=== PATIENT | female | born 1960 | race Caucasian/White ===

== ENCOUNTER → 2018-05-24 14:57 | Outpatient (CLI) | payer OTHER, SELFPAY ==
[2018-05-24 17:35] LABS: Absolute Lymphocyte Count 2.26 X10^3/ul (0.83-4.51); Absolute Neutrophil Count 4.2 X10^3/uL (2.0-7.7); Basophil# 0.03 X10^3/uL; Basophil% 0.4 % (0-1); Eosinophil# 0.15 X10^3/uL; Eosinophils% 2.1 % (0-5); Hematocrit 41.6 % (37-47); Hemoglobin 13.6 g/dl (12.0-15.0); Lymphocyte # 2.26 X10^3/ul (4.0); Lymphocyte % 31.6 % (19-41); Mean Corp Hgb Conc 32.7 g/gl (32-36); Mean Corpuscular Hgb 31.1 pg (27.0-32.0); Mean Platelet Vol. 10.6 fl (6.2-12.0); Monocyte# 0.54 X10^3/uL; Monocyte% 7.6 % (0-10); Neutrophil # 4.16 X10^3/uL (2.7-7.7); Neutrophil % 58.2 % (47-70); POSITIVE COUNT NO; POSITIVE DIFFERENTIAL NO; POSITIVE MORPHOLOGY NO; Platelet Count 297 K/mm3 (150-450); RBC Distribution Width CV 13.3 % (11.6-14.6); RBC Distribution Width SD 45.1 fl (35.1-43.9); Red Blood Count 4.38 M/mm3 (4.2-5.4); White Blood Count 7.2 K/mm3 (4.4-11.0)
[2018-05-24 18:11] LABS: Anion Gap 9 (5-15); BUN 17 mg/dL (7-18); BUN/Creat Ratio 20.1 RATIO (10-20); Calcium,Total 9.7 mg/dL (8.5-10.1); Chloride 107 mmol/L (98-107); Creatinine, Serum 0.84 mg/dL (0.55-1.02); EST Glomerular Filtration Rate 73 mL/min (>60); Est Glom Filt Rate - Afr Amer 89 mL/min (>60); Glucose 105 mg/dL (74-106); Potassium 3.8 mmol/L (3.5-5.1); Sodium Level 142 mmol/L (136-145); T4 Free Direct 1.01 ng/dL (0.76-1.46); Thyroid Stim Hormone (TSH) 1.49 uIU/mL (0.358-3.74)
== END ==
PROVIDERS: Family Provider Family Medicine; PCP Family Medicine; Visit Provider Family Medicine
DX: E03.9 Hypothyroidism, unspecified (principal); I48.91 Unspecified atrial fibrillation; E78.5 Hyperlipidemia, unspecified
CPT/HCPCS: 36415; 80048; 84439; 84443; 85025

== ENCOUNTER → 2018-07-12 08:26 | Outpatient (CLI) | payer OTHER, SELFPAY ==
[2018-07-12 12:54] LABS: Thyroid Stim Hormone (TSH) 2.05 uIU/mL (0.358-3.74)
== END ==
PROVIDERS: Family Provider Family Medicine; PCP Family Medicine; Visit Provider Family Medicine
DX: E03.9 Hypothyroidism, unspecified (principal)
CPT/HCPCS: 36415; 84443

== ENCOUNTER → 2018-09-14 15:23 | Outpatient (CLI) | payer SELFPAY ==
--- NOTE | 2018-09-14 15:46 | MRI_ITS ---
STUDY: MRI LUMBAR SPINE WITHOUT CONTRAST REASON FOR EXAM: Female, 58 years old. RADICULOPATHY, LOW BACK PIN INTO LEFT HIP AND DOWN LEG. TECHNIQUE: Standardized fat and water weighted pulse sequences were obtained in the sagittal and axial planes. COMPARISON: None FINDINGS: T12-L1: There is mild disc space narrowing and endplate spondylosis. There is no significant disc herniation, central canal or foraminal stenosis. Normal lumbar lordosis. There is no substantial scoliosis. Normal conus medullaris that terminates at the T12 L1-2: There is mild disc space narrowing and endplate spondylosis. There is no significant disc herniation, central canal or foraminal stenosis. L2-3: There is moderate disc space narrowing and endplates spondylosis. There is a mild disc bulge and facet atrophy without significant central canal or foraminal stenosis. L3-4: There is mild disc space narrowing and endplates spondylosis. There is mild disc bulge and facet hypertrophy without significant central canal or foraminal stenosis. L4-5: There is mild disc space narrowing and endplates spondylosis.. There is moderate facet arthropathy with minimal grade 1 anterolisthesis and disc bulging without significant central canal or foraminal stenosis. L5-S1: There is mild disc space narrowing and endplates spondylosis. There is severe facet arthropathy with grade 1 anterolisthesis and mild disc bulging without significant central canal stenosis. There is mild bilateral foraminal stenosis. Normal visualized sacral ala. Normal visualized paraspinous soft tissue structures. MRI/Spine Lumbar (Routine) IMPRESSION: L4/L5: Degenerative grade 1 anterolisthesis. L5/S1: Degenerative grade 1 anterolisthesis. Electronically Signed: Easton Cano MD at 15:29 EST Tel , Service support ,
--- OUTSIDE RECORDS SUMMARY | 2018-11-16 17:59 | XMS RPT_ITS ---
:1960 Author Organization OH[facility] Care Team Providers Name Role Phone LUCINDA TODD (MEDIA RELATIONS ASSOCIATE) Referring Unavailable LUCINDA TODD (MEDIA RELATIONS ASSOCIATE) Attending Unavailable LUCINDA TODD (MEDIA RELATIONS ASSOCIATE) Referring Unavailable LUCINDA TODD (MEDIA RELATIONS ASSOCIATE) Referring Unavailable Tenzin Nicole Attending Unavailable Tenzin Nicole Referring Unavailable Tenzin Nicole Primary Care Unavailable Tenzin Nicole Attending Unavailable Tenzin Nicole Primary Care Unavailable Tenzin Nicole Attending Unavailable Tenzin Nicole Primary Care Unavailable PROBLEMS PROBLEMS DATE TYPE CONDITION / CODE ATTENDING STATUS SOURCE 07/19/2018 Unknown E03.9 - Tenzin Nicole Active [place] Hypothyroidism, Community unspecified / Hospital E03.9(ICD-10) Repository 10/12/2017 Active Hypothyroidism, NA Active [place] unspecified / Clinic Main E03.9(ICD-10) [place] Repository 10/21/2017 Active Encounter for NA Active [place] screening mammogram Clinic Main for malignant [place] neoplasm of breast / Repository Z12.31(ICD-10) 08/19/2016 Active Atherosclerotic heart NA Active [place] disease of craig [facility] Main coronary artery [place] without angina Repository pectoris / I25.10(ICD-10) 10/06/2007 Active Mixed hyperlipidemia NA Active [place] / E78.2(ICD-10) Clinic Main [place] Repository PROCEDURES PROCEDURES No Procedure Records FoundRESULTS RESULTS SPINE LUMBAR Observed: 09/14/2018 Status: F Source: [place] (ROUTINE) 3:47 PM [facility] REPOSITORY [facility] Imaging Services [address] [place] [address] Spine Lumbar (Routine) MR#: [id number] Acct: [id number] Name: KASIA MCDERMOTT Rep #: [id number] : 1960 F 58 From: Easton Cano PCP: Tenzin Nicole MD Status: REG CLI Study: Spine Lumbar (Routine) Date of Exam: 09/14/18 Exam# [id number] Ordering Dr: Tenzin Nicole MD STUDY: MRI LUMBAR SPINE WITHOUT CONTRAST REASON FOR EXAM: Female, 58 years old. RADICULOPATHY, LOW BACK PIN INTO LEFT HIP AND DOWN LEG. TECHNIQUE: Standardized fat and water weighted pulse sequences were obtained in the sagittal and axial planes. COMPARISON: None FINDINGS: T12-L1: There is mild disc space narrowing and endplate spondylosis. There is no significant disc herniation, central canal or foraminal stenosis. Normal lumbar lordosis. There is no substantial scoliosis. Normal conus medullaris that terminates at the T12 L1-2: There is mild disc space narrowing and endplate spondylosis. There is no significant disc herniation, central canal or foraminal stenosis. L2-3: There is moderate disc space narrowing and endplates spondylosis. There is a mild disc bulge and facet atrophy without significant central canal or foraminal stenosis. L3-4: There is mild disc space narrowing and endplates spondylosis. There is mild disc bulge and facet hypertrophy without significant central canal or foraminal stenosis. L4-5: There is mild disc space narrowing and endplates spondylosis.. There is moderate facet arthropathy with minimal grade 1 anterolisthesis and disc bulging without significant central canal or foraminal stenosis. L5-S1: There is mild disc space narrowing and endplates spondylosis. There is severe facet arthropathy with grade 1 anterolisthesis and mild disc bulging without significant central canal stenosis. There is mild bilateral foraminal stenosis. Normal visualized sacral ala. Normal visualized paraspinous soft tissue structures. MRI/Spine Lumbar (Routine) IMPRESSION: L4/L5: Degenerative grade 1 anterolisthesis. L5/S1: Degenerative grade 1 anterolisthesis. Electronically Signed: Easton Cano MD at 15:29 EST Tel , Service support , CC: Tenzin Nicole MD Crime Lab Analyst: Signed THYROID STIM HORMONE Collected: 07/12/2018 Status: F Source: [place] (TSH) 8:28 AM [facility] REPOSITORY TYPE CODE TESTS RESULT OUT OF RANGE REFERENCE UNITS LAB L501.9520 0.358-3.74 uIU/mL Normal TSH 2.05 Performed By: #### L501.9520 #### [facility] [address] [place], [place], [address] CBC W/DIFF, AUTOMATED Collected: 05/24/2018 Status: F Source: [place] 3:01 PM [facility] REPOSITORY TYPE CODE TESTS RESULT OUT OF RANGE REFERENCE UNITS LAB L100.1000 4.4-11.0 K/mm3 Normal WBC 7.2 LAB L100.1200 4.2-5.4 M/mm3 Normal RBC 4.38 LAB L100.1300 12.0-15.0 g/dl Normal HGB 13.6 LAB L100.1400 37-47 % Normal HCT 41.6 LAB L100.1500 81-99 fL Normal MCV 95.0 LAB L100.1600 27.0-32.0 pg Normal MCH 31.1 LAB L100.1700 32-36 g/gl Normal MCHC 32.7 LAB L100.1810 11.6-14.6 % Normal RDW CV 13.3 LAB L100.1820 35.1-43.9 fl High RDW SD 45.1 LAB L100.1900 150-450 K/mm3 Normal PLT 297 LAB L100.2000 6.2-12.0 fl Normal MPV 10.6 LAB L100.2100 47-70 % Normal NEUT% 58.2 LAB L100.2200 19-41 % Normal LY% 31.6 LAB L100.2300 0-10 % Normal MONO% 7.6 LAB L100.2400 0-5 % Normal EO% 2.1 LAB L100.2500 0-1 % Normal BASO% 0.4 LAB L100.2550 0.0-0.9 % Normal IM GRAN % 0.100 Result Comment: IG% - Immature Granulocytes (promyelocytes, myelocytes and metamyelocytes) > 1% indicates that a LEFT SHIFT is Present. LAB L100.2620 2.0-7.7 X10 3/uL Normal Absolute Neut 4.2 LAB L100.2720 0.83-4.51 X10 3/ul Normal Absolute Lymph 2.26 Performed By: #### L100.0100 #### [facility] [address] [place], [address] BASIC METABOLIC Collected: 05/24/2018 Status: F Source: [place] PROFILE (BMP) 3:01 PM [facility] REPOSITORY TYPE CODE TESTS RESULT OUT OF RANGE REFERENCE UNITS LAB L501.0100 74-106 mg/dL Normal GLU 105 Result Comment: Fasting Glucose result from 100 to 125 mg/dL suggests IMPAIRED HOMEOSTASIS per A.D.A. criteria. Please note revised GLUCOSE reference range effective 2017. LAB L501.1000 7-18 mg/dL Normal BUN 17 LAB L501.1100 0.55-1.02 mg/dL Normal CREAT,SERUM 0.84 Result Comment: The validity of the calculated GFR AND GFRAA in patients over 70 years has not been determined. Clinical correlation is essential. LAB L501.1110 >60 mL/min Normal EST GFR 73 Result Comment: Non- GFR Calc LAB L501.1115 >60 mL/min Normal EST GFR - AA 89 Result Comment: GFR Calc LAB L501.1300 10-20 RATIO High BUN/CRE 20.1 LAB L501.2200 8.5-10.1 mg/dL CA Normal 9.7 LAB L501.5300 136-145 mmol/L NA Normal 142 LAB L501.5600 3.5-5.1 mmol/L K Normal 3.8 LAB L501.5900 98-107 mmol/L CL Normal 107 LAB L501.6100 21.0-32.0 mmol/L Normal CO2 26.0 LAB L501.6200 5-15 Normal GAP 9 Performed By: #### L500.2500, L501.9520, L506.0400 #### [facility] [address] [place], [address] THYROID STIM HORMONE Collected: 05/24/2018 Status: F Source: [place] (TSH) 3:01 PM [facility] REPOSITORY TYPE CODE TESTS RESULT OUT OF RANGE REFERENCE UNITS LAB L501.9520 0.358-3.74 uIU/mL Normal TSH 1.49 Performed By: #### L500.2500, L501.9520, L506.0400 #### [facility] [address] [place], [address] T4 FREE DIRECT Collected: 05/24/2018 Status: F Source: [place] 3:01 PM [facility] REPOSITORY TYPE CODE TESTS RESULT OUT OF RANGE REFERENCE UNITS LAB L506.0400 0.76-1.46 ng/dL Normal T4 FREE 1.01 DIRECT Performed By: #### L500.2500, L501.9520, L506.0400 #### [facility] [address] [place], [address] TSH Collected: 12/15/2017 Status: F Source: [place] 2:51 PM [facility] REPOSITORY TYPE CODE TESTS RESULT OUT OF RANGE REFERENCE UNITS LAB TSH 0.400-5.500 uU/mL TSH 0.636 Performed By: #### TSH #### [facility] [address] [place], [place] [address] [facility] Observed: 10/21/2017 Status: COMPLETED Source: [place] 10:35 AM [facility] REPOSITORY HNO ID: [id number] Author: Mammography Coordinator Service: (none) Author Type: Physician Type: Letter Filed: 10/25/2017 11:31 PM Note Text: October 21, 2017 PID: [id number] Kasia Mcdermott [address] [place] [address] Dear Ms. Mcdermott, We are pleased to inform you that the results of your recent breast imaging exam on 10/21/2017 are normal. Your mammogram demonstrates that you have dense breast tissue, which could hide abnormalities. Dense breast tissue, in and of itself, is a relatively common condition. Therefore, this information is not provided to cause undue concern; rather, it is to raise your awareness and promote discussion with your health care provider regarding the presence of dense breast tissue in addition to other risk factors. Early detection of cancer is very important. We also understand recommendations regarding breast cancer screening are controversial. Please discuss with your primary care provider which strategy is best for you and whether a mammogram is right for you. Your imaging studies and report will be kept on file at [facility] as part of your permanent medical record and are available for your continuing care. Thank you for allowing us to help in meeting your health care needs. Sincerely, Dr. Beckham Interpreting Radiologist [facility] (Normal over 40) PROGRESS Observed: 10/21/2017 Status: COMPLETED Source: [place] 9:51 AM [facility] REPOSITORY HNO ID: [id number] Author: Sydney Wagner Service: (none) Author Type: (none) Type: Progress Notes Filed: 10/21/2017 9:51 AM Note Text: Radiology Service Progress Note PATIENT NAME: Kasia Mcdermott DATE OF SERVICE: October 21, 2017 TIME: 9:51 AM PATIENT IDENTITY VERIFICATION COMPLETED USING TWO (2) METHODS: Patient confirmed name verbally and Date of . PATIENT GENDER DATA: Female. status: : No status: NO. PATIENT RELEVANT IMPLANT DATA REVIEWED: Not Applicable RADIOLOGY DEPARTMENT: [facility] DATA: Not applicable SIGNED BY: Sydney Wagner October 21, 2017 9:51 AM [facility] SCREENING Observed: 10/21/2017 Status: F Source: [place] 9:34 AM [facility] REPOSITORY * * *Final Report* * * DATE OF EXAM: Oct 21 2017 9:34AM [facility] 0581 - [facility] SCREENING / PROCEDURE REASON: Encounter for screening mammogram for malignant neoplasm of breast * * * * Physician Interpretation * * * * RESULT: #[id number] - [facility] SCREENING BILATERAL DIGITAL SCREENING MAMMOGRAM WITH CAD: 10/21/2017 HISTORY: Encounter For Screening Mammogram For Malignant Neoplasm Of Breast\ Screening Mammogram - patient reports NO breast symptoms /priors available for comparison. RESULT: TECHNIQUE: The study was acquired using full field digital technology and interpreted from soft copy. Current study was also evaluated with a Computer Aided Detection (CAD). Comparison is made to exams dated: 09/02/2016 mammogram, 06/26/2015 mammogram, and 03/15/2012 mammogram - [facility]. The tissue of both breasts is heterogeneously dense. This may lower the sensitivity of mammography. No significant masses, calcifications, or other findings are seen in either breast. There has been no significant interval change. IMPRESSION: NEGATIVE There is no mammographic evidence of malignancy. A 1 year screening mammogram is recommended. Audie Beckham M.D. pt/trino:10/21/2017 10:35:03 Director Information Security: Sydney SMITH)(Claritza), [facility] letter sent: Normal over 40 Mammogram BI-RADS: 1 Negative Crime Lab Analyst: Trino Transcribe Date/Time: Oct 21 2017 9:48A Dictated by: AUDIE BECKHAM MD This examination was interpreted and the report reviewed and electronically signed by: AUDIE BECKHAM MD on Oct 21 2017 10:35AM EST [id number] PROGRESS Observed: 10/12/2017 Status: COMPLETED Source: [place] 10:32 AM [facility] REPOSITORY O ID: [id number] Author: Lucinda Smith (Josh) Perez Service: (none) Author Type: Nurse Practitioner Type: Progress Notes Filed: 10/12/2017 12:26 PM Note Text: Chief Complaint Patient presents with: Refill Request: medication f/up HPI Kasia Mcdermott is a 57 year old female who presents here today for Chronic Medical Conditions and refills. Former patient of Dr. Bourgeois, who is no longer practicing at this site. Hypothyroidism. She is not doing well on her current dose of Synthroid. With complaint of fatigue, weight gain, weight loss and cold intolerance. Current dose of Synthroid is 50 mcg. TSH (uU/mL) Date Value 10/08/2017 3.990 10/01/2016 2.370 ) Palpitations: taking Metoprolol daily for palpitations, improved from when she took Verapamil. Denies any side effects and tolerating well. Takes BP at home with readings 115/60's. Hyperlipidemia. Ms. Mcdermott reports doing well on current therapy of simvastatin (Zocor) 5 mg. Denies side effects of muscle weakness or achiness. Her most recent lipid panels are: Cholesterol, Total (mg/dL) Date Value 10/08/2017 209 10/01/2016 259 HDL Cholesterol (mg/dL) Date Value 10/08/2017 55 10/01/2016 48 LDL Cholesterol (mg/dL) Date Value 10/08/2017 125 10/01/2016 177 Triglyceride (mg/dL) Date Value 10/08/2017 144 10/01/2016 171 Past medical history, appointments, medications, allergies reviewed. Previous Medical History PAST MEDICAL HISTORY Diagnosis Date - Abnormal maternal glucose tolerance, antepartum recent sugars normal - Other and unspecified hyperlipidemia - Uterovaginal prolapse, unspecified Previous Surgical History PAST SURGICAL HISTORY Procedure Laterality Date - LIGATE FALLOPIAN TUBE - PAST SURGICAL HISTORY OF UMBILICAL HERNIA REPAIR - REVISE MEDIAN N/CARPAL TUNNEL SURG 1991 Carpal tunnel decomp, bilat - TOTAL ABDOM HYSTERECTOMY 09/2010 Hysterectomy, ANTHONY Family History FAMILY HISTORY Problem Relation Age of Onset - Colon Cancer Maternal Grandfather - Breast Cancer Paternal Aunt - Hypertension Father - Heart Maternal Grandmother was always on meds for heart but never had [place] - Diabetes Maternal Grandmother - Thyroid Mother also fibromyalgia - multiple myeloma [Other] [OTHER] Father Patient Allergies ALLERGIES No Known Allergies Current Medications Current Outpatient Prescriptions on File Prior to Visit: simvastatin (ZOCOR) 10 mg tablet Take 0.5 tablets by mouth daily at bedtime. For cholesterols. levothyroxine (SYNTHROID) 50 mcg tablet Take 1 tablet by mouth once daily. Take on empty stomach. For Thyroid. UBIDECARENONE (CO Q-10 ORAL) Take by mouth. with Nathanael Solis metoprolol succinate ER (TOPROL XL) 25 mg 24 hr tablet Take 1 tablet by mouth once daily. verapamil ER (VERELAN) 120 mg 24 hr capsule Take 1 capsule by mouth once daily. nitroglycerin sublingual 0.4 mg SU[address] SL tablet Place one(1) tablet under tongue as needed for chest pain. If no pain relief call 911. ASPIRIN 81 MG CHEWABLE TAB Take one(1) tablet daily. No current facility-administered medications on file prior to visit. Social History Social History Marital status: Spouse name: Years of education: Number of children: Social History Main Topics Smoking status: Never Smoker Alcohol use: No Drug use: No Sexual activity: Yes Partners with: Male Review of Symptoms REVIEW OF SYSTEMS GENERAL: No weight loss, malaise or fevers, Positive for malaise . HEENT: No changes in hearing or vision, no nose bleeds or other nasal problems, Positive: past 10 days generalized head pressure. NECK: Negative for lumps, goiter, pain and significant neck swelling RESPIRATORY: Negative for cough, hemoptysis, wheezing, COPD, dyspnea or shortness of breath CARDIOVASCULAR: Negative for chest pain, leg swelling, hypertension, CHF or palpitations GI: No nausea, vomiting, or diarrhea and No heartburn or reflux symptoms : No history of dysuria, frequency or incontinence EXAM: BP 120/72 (BP Site: Left Arm, BP Position: Sitting, BP Cuff Size: Regular Adult) Pulse 64 Resp 18 Wt 71 kg (156 lb 9.6 oz) LMP 01/09/2009 BMI 30.33 kg/m2 General Appearance: Well appearing, alert, in no acute distress, well-hydrated, well nourished., Overweight. Skin: Skin color, texture, turgor normal, no suspicious rashes or lesions. Head: Normocephalic, no masses, lesions, tenderness or abnormalities. Eyes: Anicteric sclera. Pupils are equally round and reactive to light. Extraocular movements are intact. . Ears: External ears normal, canals clear. Oropharynx: Lips, mucosa, and tongue normal, teeth and gums normal, oropharynx normal. Neck: Supple, no adenopathy; thyroid symmetric, normal size, no bruits. Lungs: Lungs clear to auscultation. No wheezing, rhonchi, rales. Heart: RRR without murmur, gallop, or rubs. No ectopy. Abdomen: Normal abdominal exam, Abdomen soft, non-tender. Bowel sounds normal. No masses, organomegaly. Neurologic: Gait normal. . Sensation grossly intact.. Health Maintenance List MAMMOGRAM due on 09/02/2017 COLORECTAL CANCER SCREENING,SEE MODIFIER due on 10/29/2019 DIABETES SCREEN due on 10/08/2020 LIPID SCREEN due on 10/08/2022 TETANUS due on 10/12/2027 ONE PNEUMOVAX PRIOR TO AGE 65 Completed INFLUENZA Completed HEPATITIS C SCREENING Completed Data reviewed Component Latest Ref Rng AND Units 10/08/2017 Protein, Total 6.3 - 8.0 g/dL 7.3 Albumin 3.9 - 4.9 g/dL 4.2 Calcium 8.5 - 10.2 mg/dL 9.3 Bilirubin, Total 0.2 - 1.3 mg/dL 0.7 Alkaline Phosphatase 32 - 117 U/L 65 AST 13 - 35 U/L 33 Glucose 74 - 99 mg/dL 90 BUN 7 - 21 mg/dL 15 Creatinine 0.58 - 0.96 mg/dL 0.62 Sodium 136 - 144 mmol/L 142 Potassium 3.7 - 5.1 mmol/L 3.9 Chloride 97 - 105 mmol/L 102 CO2 22 - 30 mmol/L 24 Anion Gap 9 - 18 mmol/L 16 ALT 7 - 38 U/L 29 eGFR- >60 eGFR-All Other Races . >60 Cholesterol, Total <200 mg/dL 209 (H) Triglyceride <150 mg/dL 144 HDL Cholesterol >39 mg/dL 55 LDL Cholesterol <100 mg/dL 125 (H) Non HDL Cholesterol <130 mg/dL 154 (H) Fasting Time hrs 2 VLDL Cholesterol <30 mg/dL 29 TC:HDL Ratio <5.10 3.80 LDL:HDL Ratio <2.54 2.27 TSH 0.400 - 5.500 uU/mL 3.990 ASSESSMENT/PLAN: 1. Hypothyroidism, acquired - ICD9: 244.9, ICD10: E03.9 (primary diagnosis) - Instructed patient on importance of taking on an empty stomach either first thing in the morning or at bedtime. - check TSH in 2 months - Increase Synthroid dose to 0.075 mg - LEVOTHYROXINE 75 MCG TABLET - TSH BLD 2. Atherosclerosis of craig coronary artery of craig heart without angina pectoris - ICD9: 414.01, ICD10: I25.10 - METOPROLOL SUCCINATE ER 25 MG TABLET,EXTENDED RELEASE 24 HR 3. Mixed hyperlipidemia - ICD9: 272.2, ICD10: E78.2 - good control - Increase dose of simvastatin (Zocor) 10 mg - SIMVASTATIN 10 MG TABLET 4. Screening for breast cancer - ICD9: V76.10, ICD10: Z12.31 - [place] SCREENING Lucinda Todd, MSN TECHNICAL STAFF ENGINEER COMP METABOLIC PANEL Collected: 10/08/2017 Status: F Source: [place] 9:13 AM [facility] REPOSITORY TYPE CODE TESTS RESULT OUT OF REFERENCE UNITS RANGE LAB TP 6.3-8.0 g/dL Protein, Total 7.3 LAB ALB 3.9-4.9 g/dL Albumin 4.2 LAB CA 8.5-10.2 mg/dL Calcium, Total 9.3 LAB TBIL 0.2-1.3 mg/dL Bilirubin, Total 0.7 LAB ALKP 32-117 U/L Alkaline Phosphatase 65 LAB AST 13-35 U/L AST 33 LAB GLU 74-99 mg/dL Glucose 90 Result Comment: The [place] Diabetes Association (ADA) provides guidance for cutoff values for fasting glucose and random glucose. The ADA defines fasting as no caloric intake for at least 8 hours. Fas ting plasma glucose results between 100 to 125 mg/dL indicate increased risk for diabetes (prediabetes). Fasting plasma glucose results greater than or equal to 126 mg/dL meet the criteria for diagnosis of diabetes. In the absence of unequivocal hyperglycemia, results should be confirmed by repeat testing. In a patient with classic symptoms of hyperglycemia or hyperglycemic crisis, random plasma glucose results greater than or equal to 200 mg/dL meet the criteria for diagnosis of diabetes. Reference: Standards of Medical Care in Diabetes 2016, [place] Diabetes Association. Diabetes Care. 2016.39(Suppl 1). LAB BUN 7-21 mg/dL BUN 15 LAB CRET 0.58-0.96 mg/dL Creatinine 0.62 LAB NA 136-144 mmol/L Sodium 142 LAB K 3.7-5.1 mmol/L Potassium 3.9 LAB CL 97-105 mmol/L Chloride 102 LAB CO2 22-30 mmol/L CO2 24 LAB AGAP 9-18 mmol/L Anion Gap 16 LAB ALT 7-38 U/L ALT 29 LAB GFRAA eGFR- Amer. >60 LAB GFRNAA . eGFR-All Other Races >60 Result Comment: eGFR (Estimated GFR) Units of measure: mL/min/1.73 meters squared eGFR is derived from the reexpressed MDRD Study equation using the following parameters: serum creatinine, age, gender and race. The creatinine assay has been calibrated to be traceable to IDMS. An eGFR <60 mL/min/1.73m2 for >3 months is consistent with chronic kidney disease. Refer to KDOQI guidelines for clinical interpretation. In patients with unstable renal function, e.g. those with acute kidney injury, the eGFR may not accurately reflect actual GFR. Performed By: #### CMP, LIPB, TSH #### [facility] [address] [place] [id number] LIPID PANEL, BASIC Collected: 10/08/2017 Status: F Source: [place] 9:13 AM [facility] REPOSITORY TYPE CODE TESTS RESULT OUT OF REFERENCE UNITS RANGE LAB CHOL <200 mg/dL Cholesterol High 209 Result Comment: <200 mg/dL, Desirable 200-239 mg/dL, Borderline high >239 mg/dL, High LAB TRIGLY <150 mg/dL Triglyceride 144 Result Comment: <150 mg/dL, Normal 150-199 mg/dL, Borderline high 200-499 mg/dL, High >499 mg/dL, Very high LAB HDL >39 mg/dL HDL-Cholesterol 55 Result Comment: 40-59 mg/dL, Acceptable >59 mg/dL, High: Negative risk factor for coronary heart disease <40 mg/dL, Low: Positive risk factor for coronary heart disease LAB LDL <100 mg/dL LDL-Cholesterol High 125 Result Comment: <100 mg/dL, Optimal 100-129 mg/dL, Near optimal/above optimal 130-159 mg/dL, Borderline high 160-189 mg/dL, High >189 mg/dL, Very high Secondary prevention optimal LDL Cholesterol levels are recommended to be < 70 mg/dL LAB NONHDL <130 mg/dL Non HDL High Cholesterol 154 Result Comment: <130 mg/dL, Optimal 130-159 mg/dL, Near optimal/above optimal 160-189 mg/dL, Borderline high 190-219 mg/dL, High >219 mg/dL, Very high Secondary prevention optimal non HDL Cholesterol levels are recommended to be < 100 mg/dL LAB FT hrs Fasting Time 2 LAB VLDL <30 mg/dL VLDL Cholesterol 29 LAB TCHDL <5.10 TC:HDL Ratio 3.80 LAB LDLHDL <2.54 LDL:HDL Ratio 2.27 Result Comment: Reference: 1. National Cholesterol Education Program ATP III Guideline At-A-Glance Quick Desk Reference: National Heart, Lung, and Blood [place]. National Institutes of Health. 2001: NIH Publication No. 01-3305. 2. An International Atherosclerosis Society position paper: global recommendations for the management of dyslipidemia: executive summary, Atherosclerosis. 2014: 232(2):410-413. Performed By: #### CMP, LIPB, TSH #### [facility] [address] [place] [address] TSH Collected: 10/08/2017 Status: F Source: [place] 9:13 AM [facility] [place] REPOSITORY TYPE CODE TESTS RESULT OUT OF RANGE REFERENCE UNITS LAB TSH 0.400-5.500 uU/mL TSH 3.990 Performed By: #### CMP, LIPB, TSH #### [facility] [address] [place] [id number] ALLERGIES ALLERGIES DATE TYPE / CODE NAME / CODE REACTION SEVERITY SOURCE 01/25/2017 Drug pravastatin/F006 Unknown Unknown [facility] Allergy/[id number](RXNORM) [facility] 247754(SNOM Repository ED CT) Drug NO KNOWN [facility] Class/81969 ALLERGIES [facility] 1003(SNOMED Repository CT) ENCOUNTERS ENCOUNTERS ADMIT/DISCHARGE ACCOUNT ADMITTING ENCOUNTER LOCATION SOURCE NUMBER CLASS 09/14/2018 [id number] [facility] ing:MRI Repository 07/12/2018 [id number] [facility] ing:LAB.FUTUR Repository E 05/24/2018 [id number] [facility] ing:BFHLAB Repository 12/15/2017/02/15/[id number] Repository 10/21/2017/10/22/[id number] Repository 10/12/2017/10/12/[id number] Repository 10/08/2017/10/08/[id number] Repository PAYERS PAYERS ENCOUNTER GUARANTOR PAYER SUBSCRIBER SOURCE 09/14/2018 KASIA PALAFOX Primary Insurance:[facility] KASIA Pateloster [id number] [facility] [facility]DOB[facility] RDAPPLE Number: .[place]ive [id number] Date:2018-09-12 Repository [id number]: () 09/14/2018 [facility]:SELF PAY [facility] Number: Effective Repository Date:2018-09-12 07/12/2018 Priscila Primary Kasia Lynn [id number] Insurance:CONFUCIANISTDALILA McdermottDOB: [facility]ly [facility]y [id number]: Rep[facility] [id number]: 330 [id number] [phone] () Date: [address] [address]EF: 07/12/2018 Secondary NOT GIVENUNK Leah Insurance:SELF PAY [facility] Number: Effective Repository Date:2018-05-26 05/24/2018 [facility] Kasia Lynn [id number] Insurance:CONFUCIANIST BaldemarDOB: [facility] [id number] GROUPPoly Number: Repository [id number]: 330 [id number] [phone] () Date: [address] [address]VT: 05/24/2018 Secondary NOT GIVENUNK Leah Insurance:SELF PAY [facility] Number: Effective Repository Date:2018-05-24
== END ==
PROVIDERS: Family Provider Family Medicine; PCP Family Medicine; Referring Provider Family Medicine; Visit Provider Family Medicine
DX: M54.16 Radiculopathy, lumbar region (principal)
CPT/HCPCS: 72148

== ENCOUNTER → 2018-10-26 09:26 | Outpatient (CLI) | payer OTHER, SELFPAY ==
[2018-10-26 12:20] LABS: Absolute Lymphocyte Count 1.91 X10^3/ul (0.83-4.51); Absolute Neutrophil Count 3.4 X10^3/uL (2.0-7.7); Basophil# 0.04 X10^3/uL; Basophil% 0.7 % (0-1); Eosinophil# 0.25 X10^3/uL; Eosinophils% 4.2 % (0-5); Hematocrit 42.1 % (37-47); Hemoglobin 13.3 g/dl (12.0-15.0); Lymphocyte # 1.91 X10^3/ul (4.0); Lymphocyte % 31.8 % (19-41); Mean Corp Hgb Conc 31.6 g/gl (32-36); Mean Corpuscular Hgb 30.4 pg (27.0-32.0); Mean Corpuscular Volume 96.3 fL (81-99); Mean Platelet Vol. 10.7 fl (6.2-12.0); Monocyte# 0.43 X10^3/uL; Monocyte% 7.2 % (0-10); Neutrophil # 3.35 X10^3/uL (2.7-7.7); Neutrophil % 55.8 % (47-70); Platelet Count 308 K/mm3 (150-450); RBC Distribution Width CV 13.7 % (11.6-14.6); RBC Distribution Width SD 48.1 fl (35.1-43.9); Red Blood Count 4.37 M/mm3 (4.2-5.4)
[2018-10-26 12:29] LABS: POSITIVE COUNT NO; POSITIVE DIFFERENTIAL NO; POSITIVE MORPHOLOGY NO
[2018-10-26 12:51] LABS: ALB/GLOB Ratio 0.9 RATIO (0.9-2.4); AST(SGOT) 30 U/L (15-37); Alanine Aminotransfer ALT/SGPT 52 U/L (13-56); Albumin, Serum 3.7 g/dL (3.2-5.0); Alkaline Phosphatase 78 U/L (45-117); Anion Gap 9 (5-15); BUN 17 mg/dL (7-18); BUN/Creat Ratio 25.6 RATIO (10-20); Calcium,Total 9.3 mg/dL (8.5-10.1); Chloride 108 mmol/L (98-107); Creatinine, Serum 0.66 mg/dL (0.55-1.02); EST Glomerular Filtration Rate 97 mL/min (>60); Est Glom Filt Rate - Afr Amer 117 mL/min (>60); Globulin 3.9 g/dL (2.2-4.2); Glucose 132 mg/dL (74-106); Magnesium 2.2 mg/dL (1.6-2.6); Potassium 3.6 mmol/L (3.5-5.1); Protein, Total 7.6 g/dL (6.4-8.2); Sodium Level 143 mmol/L (136-145); T4 Free Direct 1.41 ng/dL (0.76-1.46); Thyroid Stim Hormone (TSH) 0.06 uIU/mL (0.358-3.74)
== END ==
PROVIDERS: Family Provider Family Medicine; PCP Family Medicine; Visit Provider Family Medicine
DX: E03.9 Hypothyroidism, unspecified (principal); I48.91 Unspecified atrial fibrillation; E78.5 Hyperlipidemia, unspecified
CPT/HCPCS: 36415; 80053; 83735; 84439; 84443; 85025

== ENCOUNTER → 2019-03-07 | Outpatient (CLI) | payer OTHER, SELFPAY ==
[2019-03-07 12:46] LABS: T4 Free Direct 1.11 ng/dL (0.76-1.46)
== END | disposition home or self-care (01) ==
PROVIDERS: Family Provider Family Medicine; PCP Family Medicine; Visit Provider Family Medicine
DX: E03.9 Hypothyroidism, unspecified (principal)
CPT/HCPCS: 36415; 84439; 84443

== ENCOUNTER → 2019-03-28 | Outpatient (CLI) | payer SELFPAY ==
--- NOTE | 2019-03-28 10:12 | BI_ITS ---
MAMMOGRAPHY - BILATERAL SCREENING REASON FOR EXAM: Female, 59 years old. Routine annual screening examination. PERTINENT HISTORY: Aunt with breast cancer. TECHNIQUE: Digital bilateral breast jaciel (3D mammographic acquisition) in the CC and MLO projections. 2-D mediolateral oblique (MLO) and craniocaudad (CC) views of both breasts were obtained. CAD: Full Field Digital Mammography with Computer Added Detection was performed. COMPARISON: No comparison mammograms available at this time. If any prior films become available, an addendum to this report can be generated. FINDINGS: Breast Composition: The breasts are heterogeneously dense, which may obscure small masses. There are no dominant masses or suspicious calcifications. Benign appearing bilateral axillary lymph nodes. No other significant abnormalities are identified. BI/SCREEN MAMM (CAD) W/JACIEL BILAT IMPRESSION: Negative screening mammogram. Yearly followup mammogram recommended. (A) ASSESSMENT CATEGORY: BIRADS Category 2: Benign. A letter regarding these results will be sent to the patient by the facility within 30 days. Approximately 10% of breast cancers are not detected by mammography. A normal mammogram should not delay biopsy of a clinically suspicious abnormality. [id number] Electronically Signed: Eben Ayers, at 9:01 EDT , Service support ,
== END | disposition home or self-care (01) ==
LOC: OPBI 10:10
PROVIDERS: Family Provider Family Medicine; PCP Family Medicine; Referring Provider Family Medicine; Visit Provider Family Medicine
DX: Z12.31 Encounter for screening mammogram for malignant neoplasm of breast (principal)
CPT/HCPCS: 77063; 77067

== ENCOUNTER → 2019-09-12 09:53 | Outpatient (CLI) | payer OTHER, SELFPAY ==
[2019-09-12 12:13] LABS: Absolute Lymphocyte Count 2.14 X10^3/uL (0.83-4.51); Absolute Neutrophil Count 4.2 X10^3/uL (2.0-7.7); Basophil# 0.05 X10^3/uL; Basophil% 0.7 % (0-1); Eosinophil# 0.16 X10^3/uL; Eosinophils% 2.3 % (0-5); Hematocrit 42.5 % (37-47); Hemoglobin 13.7 g/dL (12.0-15.0); Lymphocyte # 2.14 X10^3/ul (4.0); Lymphocyte % 30.5 % (19-41); Mean Corp Hgb Conc 32.2 g/dL (32-36); Mean Corpuscular Hgb 30.5 pg (27.0-32.0); Mean Corpuscular Volume 94.7 fL (81-99); Mean Platelet Vol. 10.1 fl (6.2-12.0); Monocyte# 0.49 X10^3/uL; NRBC Flagged by Analyzer 0 % (0-5); Neutrophil # 4.15 X10^3/uL (2.7-7.7); Neutrophil % 59.2 % (47-70); Platelet Count 344 K/mm3 (150-450); RBC Distribution Width SD 44.7 fl (35.1-43.9); Red Blood Count 4.49 M/mm3 (4.2-5.4)
[2019-09-12 12:35] LABS: Anion Gap 4 (5-15); BUN 16 mg/dL (7-18); BUN/Creat Ratio 23.9 RATIO (10-20); Calcium,Total 9.7 mg/dL (8.5-10.1); Chloride 107 mmol/L (98-107); Creatinine, Serum 0.67 mg/dL (0.55-1.02); EST Glomerular Filtration Rate 95 mL/min (>60); Est Glom Filt Rate - Afr Amer 115 mL/min (>60); Glucose 114 mg/dL (74-106); Magnesium 2.4 mg/dL (1.6-2.6); Potassium 3.8 mmol/L (3.5-5.1); Sodium Level 141 mmol/L (136-145); T4 Free Direct 1.26 ng/dL (0.76-1.46); Thyroid Stim Hormone (TSH) 1.59 uIU/mL (0.358-3.74)
== END ==
PROVIDERS: PCP Family Medicine; Visit Provider Family Medicine
DX: E03.9 Hypothyroidism, unspecified (principal); I48.91 Unspecified atrial fibrillation; R53.83 Other fatigue
CPT/HCPCS: 36415; 80048; 83735; 84439; 84443; 85025

== ENCOUNTER → 2020-06-24 11:33 | Outpatient (CLI) | payer OTHER, SELFPAY ==
[2020-05-22 13:15] VITALS: BMI 29.5
[2020-06-24 15:55] LABS: Thyroid Stim Hormone (TSH) 0.63 uIU/mL (0.358-3.74)
== END ==
PROVIDERS: PCP Family Medicine; Visit Provider Family Medicine
DX: E03.9 Hypothyroidism, unspecified (principal)
CPT/HCPCS: 36415; 84443

== ENCOUNTER → 2020-10-02 10:41 | Outpatient (CLI) | payer OTHER, SELFPAY ==
[2020-05-22 13:15] VITALS: BMI 29.5
[2020-10-02 12:43] LABS: Absolute Lymphocyte Count 2.27 X10^3/uL (0.83-4.51); Absolute Neutrophil Count 3.7 X10^3/uL (2.0-7.7); Basophil# 0.04 X10^3/uL; Basophil% 0.6 % (0-1); Eosinophil# 0.11 X10^3/uL; Eosinophils% 1.7 % (0-5); Hematocrit 43.3 % (37-47); Lymphocyte # 2.27 X10^3/ul (4.0); Lymphocyte % 34.6 % (19-41); Mean Corp Hgb Conc 32.3 g/dL (32-36); Mean Corpuscular Hgb 30.5 pg (27.0-32.0); Mean Corpuscular Volume 94.3 fL (81-99); Mean Platelet Vol. 10.5 fl (6.2-12.0); Monocyte# 0.41 X10^3/uL; Monocyte% 6.2 % (0-10); NRBC Flagged by Analyzer 0 % (0-5); Neutrophil # 3.73 X10^3/uL (2.7-7.7); Neutrophil % 56.7 % (47-70); Platelet Count 310 K/mm3 (150-450); RBC Distribution Width CV 13.3 % (11.6-14.6); RBC Distribution Width SD 45.9 fl (35.1-43.9); Red Blood Count 4.59 M/mm3 (4.2-5.4); White Blood Count 6.6 K/mm3 (4.4-11.0)
[2020-10-02 12:46] LABS: Erythrocyte Sedimentation Rate 10 mm/hr (0-30)
[2020-10-02 12:54] LABS: Hemoglobin A1c 5.9 % (3.8-5.6)
[2020-10-02 13:14] LABS: CPK Total, Creatine Kinase 111 U/L (26-192); CRP < 2.90 mg/L (0.0-3.0); Cholesterol 216 mg/dL (200); High Density Lipoprotein 63 mg/dL; Magnesium 2.2 mg/dL (1.6-2.6); Rheumatoid Factor < 10.0 IU/mL (<15); T4 Free Direct 1.28 ng/dL (0.76-1.46); Thyroid Stim Hormone (TSH) 2.17 uIU/mL (0.358-3.74); Triglycerides 130 mg/dL; Very Low Density Lipoprotein 26 mg/dL (5-40)
[2020-10-04 12:33] LABS: CCP IgG Antibodies 6 units (0-19)
== END ==
PROVIDERS: PCP Family Medicine; Visit Provider Family Medicine
DX: E78.5 Hyperlipidemia, unspecified (principal); I48.91 Unspecified atrial fibrillation; R73.01 Impaired fasting glucose; M06.4 Inflammatory polyarthropathy; M79.10 Myalgia, unspecified site
CPT/HCPCS: 36415; 80061; 82550; 83036; 83735; 84439; 84443; 85025; 85652; 86140; 86200; 86431

== ENCOUNTER → 2020-11-26 08:13 | Outpatient (CLI) | payer SELFPAY, OTHER ==
[2020-05-22 13:15] VITALS: BMI 29.5
--- NOTE | 2020-11-26 08:16 | BI_ITS ---
MAMMOGRAPHY - BILATERAL SCREENING 3-D TOMOSYNTHESIS REASON FOR EXAM: Female, 60 years old. SCREENING PERTINENT HISTORY: Aunt with breast cancer.. TECHNIQUE: 2-D mammograms and 3-D Tomosynthesis of the breast (s) were performed. CAD was performed. COMPARISON: 03/28/2019 FINDINGS: The breast composition is heterogeneously dense that can obscure small breast masses. Scattered benign calcifications are seen. No dense spiculated masses or suspicious microcalcifications are identified. No architectural distortion is identified. There is no skin thickening or retraction. There has been no significant change since the prior study. BI/SCRN MAMM (CAD)W/JACIEL BILAT IMPRESSION: No mammographic signs of malignancy. Routine yearly mammograms recommended. ASSESSMENT CATEGORY: BIRADS Category 1: Negative. A letter regarding these results will be sent to the patient by the facility within 30 days. FOLLOW UP RECOMMENDATION: Yearly follow up mammogram recommended. (A) Approximately 10% of breast cancers are not detected by mammography. A normal mammogram should not delay biopsy of a clinically suspicious abnormality. Electronically Signed: Mahin Llanos MD at 10:31 EDT , Service support ,
== END ==
PROVIDERS: PCP Family Medicine; Referring Provider Family Medicine; Visit Provider Family Medicine
DX: Z12.31 Encounter for screening mammogram for malignant neoplasm of breast (principal)
CPT/HCPCS: 77063; 77067

== ENCOUNTER → 2021-01-14 13:26 | Outpatient (CLI) | payer SELFPAY, OTHER ==
[2020-05-22 13:15] VITALS: BMI 29.5
--- NOTE | 2021-01-14 13:29 | RAD_ITS ---
STUDY: X-RAY - RIGHT KNEE REASON FOR EXAM: Female, 60 years old. KNEE PAIN TECHNIQUE: 4 view(s) of the knee. COMPARISON: None. FINDINGS: Normal visualized distal femur. Normal visualized proximal tibia and fibula. Normal proximal tibiofibular articulation. There is moderate degenerative arthrosis of the medial femorotibial compartment with moderate joint space narrowing. Normal lateral femorotibial compartment. Normal patellofemoral articulation. Small joint effusion. RAD/Knee 4 or More Views IMPRESSION: Degenerative arthrosis. Small joint effusion. Electronically Signed: Eben Ayers MD at 14:36 EDT , Service support ,
--- NOTE | 2021-01-14 13:29 | RAD_ITS ---
STUDY: X-RAY - LEFT KNEE REASON FOR EXAM: Female, 60 years old. KNEE PAIN TECHNIQUE: 4 view(s) of the knee. COMPARISON: None. FINDINGS: Normal visualized distal femur. Normal visualized proximal tibia and fibula. Normal proximal tibiofibular articulation. There is severe degenerative arthrosis of the medial femorotibial compartment with severe joint space narrowing. Normal lateral femorotibial compartment. Normal patellofemoral articulation. Small joint effusion. RAD/Knee 4 or More Views IMPRESSION: Degenerative arthrosis. Small joint effusion. Electronically Signed: Eben Ayers MD at 14:37 EDT , Service support ,
== END ==
PROVIDERS: PCP Family Medicine; Referring Provider Family Medicine; Visit Provider Family Medicine
DX: M25.562 Pain in left knee (principal); M25.561 Pain in right knee
CPT/HCPCS: 73564

== ENCOUNTER → 2022-09-10 | Outpatient (CLI) | payer OTHER, SELFPAY ==
[2022-09-10 12:12] LABS: Absolute Lymphocyte Count 2.58 X10^3/uL (0.83-4.51); Absolute Neutrophil Count 3.7 X10^3/uL (2.0-7.7); Basophil# 0.06 X10^3/uL; Basophil% 0.8 % (0-1); Eosinophil# 0.23 X10^3/uL; Eosinophils% 3.2 % (0-5); Hematocrit 43.5 % (37-47); Hemoglobin 13.7 g/dL (12.0-15.0); Lymphocyte # 2.58 X10^3/ul (0.83-4.51); Lymphocyte % 36.2 % (19-41); Mean Corp Hgb Conc 31.5 g/dL (32-36); Mean Corpuscular Hgb 30.6 pg (27.0-32.0); Mean Corpuscular Volume 97.1 fL (81-99); Mean Platelet Vol. 10.7 fl (6.2-12.0); Monocyte# 0.53 X10^3/uL; Monocyte% 7.4 % (0-10); NRBC Flagged by Analyzer 0.3 % (0-5); Neutrophil # 3.72 X10^3/uL (2.7-7.7); Neutrophil % 52.3 % (47-70); Platelet Count 320 K/mm3 (150-450); Red Blood Count 4.48 M/mm3 (4.2-5.4); White Blood Count 7.1 K/mm3 (4.4-11.0)
[2022-09-10 12:31] LABS: AST(SGOT) 20 U/L (15-37); Alanine Aminotransfer ALT/SGPT 30 U/L (13-56); Albumin, Serum 3.9 g/dL (3.2-5.0); Alkaline Phosphatase 62 U/L (45-117); Anion Gap 6 (5-15); BUN 16 mg/dL (7-18); BUN/Creat Ratio 20.4 RATIO (10-20); Calcium,Total 9.6 mg/dL (8.5-10.1); Chloride 107 mmol/L (98-107); Cholesterol 217 mg/dL (200); Creatinine, Serum 0.78 mg/dL (0.55-1.02); EST Glomerular Filtration Rate 79 mL/min (>60); Est Glom Filt Rate - Afr Amer 95 mL/min (>60); Glucose 106 mg/dL (74-106); Hemoglobin A1c 6.1 % (3.8-5.6); High Density Lipoprotein 58 mg/dL; Protein, Total 7.9 g/dL (6.4-8.2); Sodium Level 142 mmol/L (136-145); T4 Free Direct 1.13 ng/dL (0.76-1.46); Thyroid Stim Hormone (TSH) 2.17 uIU/mL (0.358-3.74); Triglycerides 151 mg/dL; Very Low Density Lipoprotein 30 mg/dL (5-40)
== END | disposition home or self-care (01) ==
LOC: BFHLAB 10:12
PROVIDERS: PCP Family Medicine; Visit Provider Family Medicine
DX: E03.9 Hypothyroidism, unspecified (principal); I48.91 Unspecified atrial fibrillation; R73.03 Prediabetes; R78.5 Finding of other psychotropic drug in blood
CPT/HCPCS: 36415; 80053; 80061; 83036; 84439; 84443; 85025

== ENCOUNTER → 2022-10-07 | Outpatient (CLI) | payer SELFPAY, OTHER ==
--- NOTE | 2022-10-07 09:17 | BI_ITS ---
MAMMOGRAPHY - BILATERAL SCREENING REASON FOR EXAM: Female, 62 years old. Routine annual screening examination. PERTINENT HISTORY: Sister with breast cancer. Aunt with breast cancer. TECHNIQUE: Digital bilateral breast jaciel (3D mammographic acquisition) in the CC and MLO projections. 2-D mediolateral oblique (MLO) and craniocaudad (CC) views of both breasts were obtained. CAD: Full Field Digital Mammography with Computer Added Detection was performed. COMPARISON: Comparison is made with prior study dated 11/26/2020 and 03/28/2019. FINDINGS: Breast Composition: The breasts are heterogeneously dense, which may obscure small masses. There are no dominant masses or suspicious calcifications. Stable small benign-appearing bilateral axillary lymph nodes. No other significant abnormalities are identified. There has been no significant change since the prior study. BI/SCRN MAMM (CAD)W/JACIEL BILAT IMPRESSION: Stable bilateral screening mammogram. Yearly follow-up mammogram recommended. (A) ASSESSMENT CATEGORY: BIRADS Category 2: Benign. A letter regarding these results will be sent to the patient by the facility within 30 days. Approximately 10% of breast cancers are not detected by mammography. A normal mammogram should not delay biopsy of a clinically suspicious abnormality. [id number] Electronically Signed: Eben Ayers MD at 12:49 EST ,
== END | disposition home or self-care (01) ==
LOC: OPBI 09:15
PROVIDERS: PCP Family Medicine; Referring Provider Family Medicine; Visit Provider Family Medicine
DX: Z12.31 Encounter for screening mammogram for malignant neoplasm of breast (principal)
CPT/HCPCS: 77063; 77067

== ENCOUNTER → 2023-08-31 | Outpatient (CLI) | payer OTHER, SELFPAY ==
[2023-08-31 12:08] LABS: Absolute Lymphocyte Count 2.51 X10^3/uL (0.83-4.51); Absolute Neutrophil Count 3.6 X10^3/uL (2.0-7.7); Basophil# 0.05 X10^3/uL; Basophil% 0.7 % (0-1); Eosinophil# 0.21 X10^3/uL; Hematocrit 42.5 % (37-47); Hemoglobin 13.5 g/dL (12.0-15.0); Lymphocyte # 2.51 X10^3/ul (0.83-4.51); Lymphocyte % 36.4 % (19-41); Mean Corp Hgb Conc 31.8 g/dL (32-36); Mean Corpuscular Hgb 30.8 pg (27.0-32.0); Mean Corpuscular Volume 96.8 fL (81-99); Mean Platelet Vol. 10.3 fl (6.2-12.0); Monocyte# 0.52 X10^3/uL; Monocyte% 7.5 % (0-10); NRBC Flagged by Analyzer 0 % (0-5); Neutrophil # 3.58 X10^3/uL (2.7-7.7); Neutrophil % 52.1 % (47-70); Platelet Count 306 K/mm3 (150-450); RBC Distribution Width CV 13.1 % (11.6-14.6); RBC Distribution Width SD 47.1 fl (35.1-43.9); Red Blood Count 4.39 M/mm3 (4.2-5.4); White Blood Count 6.9 K/mm3 (4.4-11.0)
[2023-08-31 12:42] LABS: Hemoglobin A1c 5.7 % (3.8-5.6)
[2023-08-31 12:45] LABS: AST(SGOT) 27 U/L (15-37); Alanine Aminotransfer ALT/SGPT 38 U/L (13-56); Albumin, Serum 3.9 g/dL (3.2-5.0); Alkaline Phosphatase 65 U/L (45-117); Anion Gap 6 (5-15); BUN 16 mg/dL (7-18); Calcium,Total 10.2 mg/dL (8.5-10.1); Chloride 109 mmol/L (98-107); Cholesterol 222 mg/dL (200); Creatinine, Serum 0.73 mg/dL (0.55-1.02); EST Glomerular Filtration Rate 85 mL/min (>60); Est Glom Filt Rate - Afr Amer 103 mL/min (>60); Globulin 3.9 g/dL (2.2-4.2); Glucose 118 mg/dL (74-106); High Density Lipoprotein 52 mg/dL; Potassium 4.3 mmol/L (3.5-5.1); Protein, Total 7.8 g/dL (6.4-8.2); Sodium Level 142 mmol/L (136-145); T4 Free Direct 1.17 ng/dL (0.76-1.46); Thyroid Stim Hormone (TSH) 1.06 uIU/mL (0.358-3.74); Triglycerides 173 mg/dL; Very Low Density Lipoprotein 35 mg/dL (5-40)
== END | disposition home or self-care (01) ==
LOC: BFHLAB 10:37
PROVIDERS: PCP Family Medicine; Visit Provider Family Medicine
DX: E03.9 Hypothyroidism, unspecified (principal); I48.91 Unspecified atrial fibrillation; E78.5 Hyperlipidemia, unspecified; R73.03 Prediabetes
CPT/HCPCS: 36415; 80053; 80061; 83036; 84439; 84443; 85025

== ENCOUNTER → 2023-09-09 | Outpatient (CLI) | payer OTHER, SELFPAY ==
[2023-09-09 12:59] LABS: PTHIN 54.9 pg/mL (18.4-80.1)
[2023-09-09 13:00] LABS: Vitamin D,25 Hydroxy 26.8 ng/mL
[2023-09-09 13:16] LABS: Ionized Calcium 5.09 mg/dL (4.36-5.20)
[2023-09-13 10:07] LABS: Immunoglobulin A 181 mg/dL (87-352); Immunoglobulin G 858 mg/dL (586-1602); Immunoglobulin M 230 mg/dL (26-217); PROEL- A/G Ratio 1.3 (0.7-1.7); PROEL- Albumin 3.9 g/dL (2.9-4.4); PROEL- Alpha-1 Globulin 0.2 g/dL (0.0-0.4); PROEL- Alpha-2 Globulin 0.8 g/dL (0.4-1.0); PROEL- Beta Globulin 1.2 g/dL (0.7-1.3); PROEL- Globulin, Total 3.1 g/dL (2.2-3.9); PROEL-M-Spike Not Observed g/dL (Not Observed); PROELU- Albumin, Urine 33.6 % (.); PROELU- Alpha-1-Globulin,Ur 8.8 % (.); PROELU- Alpha-2-Globulin,Ur 17.7 % (.); PROELU- Beta Globulin, Ur 23.5 % (.); PROELU- Gamma Globulin, Ur 16.4 % (.); Total Protein, Ur 11.6 mg/dL (Not Estab.)
== END | disposition home or self-care (01) ==
LOC: BFHLAB 10:11
PROVIDERS: PCP Family Medicine; Visit Provider Family Medicine
DX: M89.9 Disorder of bone, unspecified (principal); R79.89 Other specified abnormal findings of blood chemistry; R53.83 Other fatigue
CPT/HCPCS: 36415; 82306; 82330; 82784; 83970; 84165; 84166; 86334

== ENCOUNTER → 2023-09-15 | Outpatient (CLI) | payer SELFPAY, OTHER ==
--- NOTE | 2023-09-15 15:19 | US_ITS ---
STUDY: THYROID ULTRASOUND REASON FOR EXAM: Female, 63 years old. NODULES TECHNIQUE: Ultrasound evaluation of the thyroid was performed with real-time and static cotton-scale imaging. COMPARISON: None. FINDINGS: RIGHT LOBE: The right lobe of the thyroid gland measures 4.8 x 1.3 x 1.4 cm. There is a homogeneous echotexture. There are no demonstrated solid, cystic or complex lesions. LEFT LOBE: The left lobe of the thyroid gland measures 5 x 1.4 x 1.2 cm. There is a homogeneous echotexture. Isoechoic nodule left lobe inferiorly measures 1.0 x 0.9 x 1.0 cm. There is perinodule vascularity. It appears well-circumscribed and homogeneous without calcifications. TR2. A second nodule is noted superiorly wider than tall measuring 0.7 x 0.5 x 0.3 cm. This appears solid/cystic. There is minimal perinodular vascularity. It appears hypoechoic. TR3. ISTHMUS: The isthmus measures 0.9 cm . The regional lymph nodes are normal. US/Thyroid IMPRESSION: 2 nodules left thyroid as above. Follow-up nuclear medicine may be helpful for further characterization. Electronically Signed: Giles Valles MD at 16:29 EST ,
--- OUTSIDE RECORDS SUMMARY | 2023-09-15 16:58 | XMS RPT_ITS | CCD ---
Author Name Unknown Address [address] [place] [address] Organization [facility] Care Team Providers Care Vice President Corporate Communications Name Role Phone [place] IQBAL, Jodie De Guzman Unavailable [phone] [place] IQBAL, Jodie De Guzman Unavailable [phone] Belkys PEREZ-Murray Bocanegra Unavailable Unavailable Belkys PEREZ-Murray Bocanegra Unavailable Unavailable WIL HERNANDEZ Attending Unavailable WIL HERNANDEZ Primary Care Unavailable WIL HERNANDEZ Admitting Unavailable SHIRLEY RAMÍREZ MD Consulting Unavailable PROVIDER, UNKNOWN Consulting Unavailable Allergies Allergy Classification Reported Allergen(s) Allergy Type Date of Onset Reaction(s) Facility (5 sources) pravastatin drug allergy 10-15-2016 RUQ pain [facility] Work Phone: Medications Completed/Discontinued Medications Medication Drug Class(es) Dates Sig (Normalized) Sig (Original) aspirin 81 mg delayed release oral tablet (5 sources) Nonsteroidal Anti-inflammatory Drug Start: 10-15-2016 take 1 tablet by mouth once daily ASPIRIN EC 81 MG TBEC One tablet by mouth daily ASPIRIN [id number] Jodie Toledo RN clopidogrel 75 mg oral tablet (6 sources) P2Y12 Platelet Inhibitor Start: 01-11-2017 End: 01-26-2017 take 1 tablet by mouth once daily PLAVIX 75 MG TABS One tablet by mouth daily CLOPIDOGREL BISULFATE [id number] Murray Rizvi [employer] COENZYME Q10 (5 sources) Start: 10-22-2016 take 1 tablet by mouth once daily CO Q-10 100 MG CAPS One tablet by mouth daily COENZYME Q10 [id number] Dylon Puentes MD Problems Active Problems Problem Classification Problem Date Documented Da te Episodic/Chronic Coronary atherosclerosis and other heart disease (15 sources) Angina pectoris; Translations: [Atherosclerotic heart disease of hoopa coronary artery without angina pectoris] Onset: 10-15-2016 10-22-2016 Chronic Disorders of lipid metabolism (5 sources) Hyperlipidemia; Translations: [Hyperlipidemia, unspecified] Onset: 10-15-2016 10-15-2016 Chronic Other nutritional; endocrine; and metabolic disorders (5 sources) Body mass index (BMI) 30.0-30.9, adult; Translations: [Body mass index (BMI) 30.0-30.9, adult] Onset: 10-22-2016 10-22-2016 Chronic Past or Other Problems Problem Classification Problem Date Documented Da te Episodic/Chronic Cardiac dysrhythmias (5 sources) Palpitations; Translations: [Palpitations] Onset: 10-15-2016 10-15-2016 Episodic Malaise and fatigue (5 sources) Fatigue; Translations: [Other fatigue] Onset: 01-11-2017 01-11-2017 Episodic Other lower respiratory disease (5 sources) Dyspnea on exertion; Translations: [Other forms of dyspnea] Onset: 01-11-2017 01-11-2017 Episodic Results Test Name Value Interpretation Reference Range Facil ity Vital Signs Date Time Vital Sign Value Performing Clinician Shauna lundy 01-22-2017 10:18-0400 Heart rate 74 /min Murray Rizvi [employer] [facility] Work Phone: 01-11-2017 08:48-0400 BMI (Body Mass Index) 30.07 kg/m2 Murray Rizvi [employer] [facility] Work Phone: 01-11-2017 08:48-0400 Body weight 69.85 kg Murray Rizvi [employer] [facility] Work Phone: 01-11-2017 08:48-0400 BP Diastolic 74 mm[Hg] Murray Rizvi [employer] [facility] Work Phone: 01-11-2017 08:48-0400 BP Systolic 120 mm[Hg] Murray Rizvi [employer] [facility] Work Phone: 01-11-2017 08:48-0400 Pulse (Heart Rate) 64 /min Murray Rizvi [employer] Work Phone: 01-11-2017 08:48-0400 Respiratory Rate 18 /min Murray Rizvi [employer] [facility] Work Phone: 01-11-2017 08:48-0400 Weight 69.85 kg Murray Rizvi [employer] [facility] Work Phone: 10-22-2016 13:12-0500 BMI (Body Mass Index) 30.07 kg/m2 Murray Rizvi [employer] [facility] Work Phone: 10-22-2016 13:12-0500 BP Diastolic 70 mm[Hg] Murray Rizvi [employer] [facility] Work Phone: 10-22-2016 13:12-0500 BP Systolic 124 mm[Hg] Murray Rizvi [employer] [facility] Work Phone: 10-22-2016 13:12-0500 Height 152.4 cm Murray Rizvi [employer] [facility] Work Phone: 10-22-2016 13:12-0500 Pulse (Heart Rate) 76 /min Murray Rizvi [employer] Work Phone: 10-22-2016 13:12-0500 Respiratory Rate 16 /min Murray Rizvi [employer] [facility] Work Phone: 10-22-2016 13:12-0500 Weight 69.85 kg Murray Rizvi [employer] [facility] Work Phone: Encounters Encounter Date Encounter Type Care Provider Facility Start: 12-11-2020 End: 12-11-[address] [facility] Procedures Date Procedure Procedure Detail Performing Clinician Start: 01-22-2017 End: 01-22-2017 Nurse, Teaching, Wound Check (no charge) Dylon Puentes MD Start: 01-11-2017 End: 01-11-2017 Documentation of current medications Murray Rizvi [employer] Start: 01-11-2017 End: 01-23-2017 *BMP Murray Verma Rizvi [employer] Start: 01-11-2017 End: 01-23-2017 aPTT Murray Rizvi [employer] Start: 01-11-2017 End: 01-23-2017 CBC W Auto Differential panel - Blood Murray Rizvi [employer] Start: 01-11-2017 End: 01-23-2017 Chest x-ray Murray Rizvi [employer] Start: 01-11-2017 End: 01-23-2017 Coagulation factor induced.INR assay in platelet poor plasma Murray Rizvi [employer] Start: 01-11-2017 End: 01-22-2017 Electrocardiogram, complete Murray Rizvi [employer] Start: 01-11-2017 End: 01-11-2017 Follow Up Appt Other Murray Rizvi [employer] Start: 10-22-2016 End: 10-22-2016 Dietary management education, guidance, and counseling Murray Rizvi [employer] Start: 10-22-2016 End: 12-25-2016 Echocardiography Dylon Puentes MD Start: 10-22-2016 End: 10-22-2016 Electrocardiogram, complete Dylon jorgensen MD Start: 10-22-2016 End: 10-22-2016 Follow Up Appt 2 months Dylon Puentes MD Start: 10-22-2016 End: 10-22-2016 MMM Dylon Puentes MD Start: 10-22-2016 End: 12-25-2016 Nuclear stress test -exercise Dylon seo MD Start: 10-22-2016 End: 12-25-2016 Remote 30 day ecg rev/report Dylon huertas MD Plan of Treatment Date Care Activity Detail Author Start: 01-11-2017 End: 01-11-2017 Appointment Appointment [facility] Work Phone: Start: 01-11-2017 End: 01-23-2017 *BMP *BMP [facility] Work Phone: Start: 01-11-2017 End: 01-23-2017 aPTT *PTT-Partial Thromboplastin Time [facility] Work Phone: Start: 01-11-2017 End: 01-23-2017 aPTT Coag (PPP) [Time] *PTT-Partial Thromboplastin Time [employer] Work Phone: Start: 01-11-2017 End: 01-23-2017 CBC W Auto Differential panel - Blood *CBC without Diff [employer] Work Phone: Start: 01-11-2017 End: 01-23-2017 Chest x-ray X-Ray, Chest, PA & Lateral [employer] Work Phone: Start: 01-11-2017 End: 01-23-2017 Coagulation factor induced.INR assay in platelet poor plasma *PT/INR [employer] Work Phone: Start: 01-11-2017 End: 01-22-2017 Electrocardiogram, complete EKG (In office) [employer] Work Phone: Start: 01-11-2017 End: 01-11-2017 Follow Up Appt Other Follow Up Appt Other [employer] Work Phone: Start: 01-11-2017 End: 01-21-2017 Left Heart Cath Left Heart Cath [employer] Work Phone: Start: 10-22-2016 End: 10-22-2016 Echocardiography Echocardiogram (complete) [employer] Work Phone: Start: 10-22-2016 End: 10-22-2016 Electrocardiogram, complete EKG (In office) [employer] Work Phone: Start: 10-22-2016 End: 10-22-2016 Follow Up Appt 2 months Follow Up Appt 2 months [employer] Work Phone: Start: 10-22-2016 End: 10-22-2016 MMM MMM [employer] Work Phone: Start: 10-22-2016 End: 10-22-2016 Nuclear stress test -exercise Nuclear stress test -exercise [employer] Work Phone: Start: 10-22-2016 End: 10-22-2016 Remote 30 day ecg rev/report 30 Day Holter Monitor [facility] Work Phone: Payers Date Payer Category Payer Unknown [id number] Unknown [id number] Summary Purpose Family History No Family History Records FoundNo Family History Records Found Advance Directives No Advanced Directives Records FoundNo Advanced Directives Records Found Additional Source Comments INFORMATION SOURCE (unrecogn ized section and content) DATE CREATED AUTHOR AUTHOR'S ORGANIZ ATION 10/09/2021 [facility] FOR RECORDS PERTAINING TO PATIENTS WHO ARE OR HAVE BEEN ENROLLED IN A CHEMICAL DEPENDENCY/SUBSTANCEABUSE PROGRAM, SOME INFORMATION MAY BE OMITTED. This clinical summary was aggregated from multiple sources. Caution should be exercised in using it in the provision of clinical care. This summary normalizes information from multiple sources, and as a consequence, information in this document may materially change the coding, format and clinical context of patient data. In addition, data may be omitted in some cases. CLINICAL DECISIONS SHOULD BE BASED ON THE PRIMARY CLINICAL RECORDS. [employer] provides no warranty or guarantee of the accuracy or completeness of information in this document.
== END | disposition home or self-care (01) ==
PROVIDERS: PCP Family Medicine; Referring Provider Family Medicine; Visit Provider Family Medicine
DX: E04.1 Nontoxic single thyroid nodule (principal)
CPT/HCPCS: 76536

== ENCOUNTER → 2023-10-13 | Outpatient (CLI) | payer SELFPAY, OTHER ==
--- NOTE | 2023-10-13 09:05 | BI_ITS ---
MAMMOGRAPHY - BILATERAL SCREENING REASON FOR EXAM: Female, 63 years old. Routine annual screening examination. PERTINENT HISTORY: Sister with breast cancer. Aunt with breast cancer. TECHNIQUE: Digital bilateral breast jaciel (3D mammographic acquisition) in the CC and MLO projections. 2-D mediolateral oblique (MLO) and craniocaudad (CC) views of both breasts were obtained. CAD: Full Field Digital Mammography with Computer Added Detection was performed. COMPARISON: Comparison is made with prior study of October 07, 2022 and November 26, 2020. FINDINGS: Breast Composition: The breasts are heterogeneously dense, which may obscure small masses. There are no dominant masses or suspicious calcifications. Stable benign-appearing bilateral axillary lymph nodes. No other significant abnormalities are identified. There has been no significant change since the prior study. BI/SCRN MAMM (CAD)W/JACIEL BILAT IMPRESSION: Stable bilateral screening mammogram. Yearly follow-up mammogram recommended. (A) ASSESSMENT CATEGORY: BIRADS Category 2: Benign. A letter regarding these results will be sent to the patient by the facility within 30 days. Approximately 10% of breast cancers are not detected by mammography. A normal mammogram should not delay biopsy of a clinically suspicious abnormality. [id number] Electronically Signed: Eben Ayers MD at 9:51 EST ,
--- OUTSIDE RECORDS SUMMARY | 2023-10-13 09:36 | XMS RPT_ITS | CCD ---
Author Name Unknown Address [address] [place] [address] Organization [facility] Care Team Providers Care Marinator Name Role Phone [place] IQBAL, Jodie De Guzman Unavailable [phone] [place] IQBAL, Jodie De Guzman Unavailable [phone] Belkys PEREZ-Murray Bocanegra Unavailable Unavailable Belkys PEREZ-Murray Bocanegra Unavailable Unavailable WIL HERNANDEZ Attending Unavailable WIL HERNANDEZ Primary Care Unavailable WIL HERNANDEZ Admitting Unavailable SHIRLEY RAMÍREZ MD Consulting Unavailable PROVIDER, UNKNOWN Consulting Unavailable Allergies Allergy Classification Reported Allergen(s) Allergy Type Date of Onset Reaction(s) Facility (5 sources) pravastatin drug allergy 10-15-2016 RUQ pain [facility] Work Phone: Medications Completed/Discontinued Medications Medication Drug Class(es) Dates Sig (Normalized) Sig (Original) aspirin 81 mg delayed release oral tablet (5 sources) Nonsteroidal Anti-inflammatory Drug Start: 10-15-2016 take 1 tablet by mouth once daily ASPIRIN EC 81 MG TBEC One tablet by mouth daily ASPIRIN [id number] Jodie Toledo RN clopidogrel 75 mg oral tablet (6 sources) P2Y12 Platelet Inhibitor Start: 01-11-2017 End: 01-26-2017 take 1 tablet by mouth once daily PLAVIX 75 MG TABS One tablet by mouth daily CLOPIDOGREL BISULFATE [id number] Murray Rizvi FIELD ENUMERATOR-C COENZYME Q10 (5 sources) Start: 10-22-2016 take 1 tablet by mouth once daily CO Q-10 100 MG CAPS One tablet by mouth daily COENZYME Q10 [id number] Dylon Puentes MD Problems Active Problems Problem Classification Problem Date Documented Da te Episodic/Chronic Coronary atherosclerosis and other heart disease (15 sources) Angina pectoris; Translations: [Atherosclerotic heart disease of [place] coronary artery without angina pectoris] Onset: 10-15-2016 [...] 10:18-0400 Heart rate 74 /min Murray Rizvi FIELD ENUMERATOR-C [facility] Work Phone: 01-11-2017 08:48-0400 BMI (Body Mass Index) 30.07 kg/m2 Murray Rizvi FIELD ENUMERATOR-[facility] Work Phone: 01-11-2017 08:48-0400 Body weight 69.85 kg Murray Rizvi FIELD ENUMERATOR-C [facility] Work Phone: 01-11-2017 08:48-0400 BP Diastolic 74 mm[Hg] Murray Rizvi FIELD ENUMERATOR-C [facility] Work Phone: 01-11-2017 08:48-0400 BP Systolic 120 mm[Hg] Murray Rizvi FIELD ENUMERATOR-C [facility] Work Phone: 01-11-2017 08:48-0400 Pulse (Heart Rate) 64 /min Murray Rizvi FIELD ENUMERATOR-C [facility] Work Phone: 01-11-2017 08:48-0400 Respiratory Rate 18 /min Murray Rizvi FIELD ENUMERATOR-C [facility] Work Phone: 01-11-2017 08:48-0400 Weight 69.85 kg Murray Rizvi FIELD ENUMERATOR-C [facility] Work Phone: 10-22-2016 13:12-0500 BMI (Body Mass Index) 30.07 kg/m2 Murray Rizvi FIELD ENUMERATOR-C [facility] Work Phone: 10-22-2016 13:12-0500 BP Diastolic 70 mm[Hg] Murray Rizvi FIELD ENUMERATOR-C [facility] Work Phone: 10-22-2016 13:12-0500 BP Systolic 124 mm[Hg] Murray Rizvi FIELD ENUMERATOR-C [facility] Work Phone: 10-22-2016 13:12-0500 Height 152.4 cm Murray Rizvi FIELD ENUMERATOR-C [facility] Work Phone: 10-22-2016 13:12-0500 Pulse (Heart Rate) 76 /min Murray Rizvi FIELD ENUMERATOR[facility] Work Phone: 10-22-2016 13:12-0500 Respiratory Rate 16 /min Murray Rizvi FIELD ENUMERATOR-C [facility] Work Phone: 10-22-2016 13:12-0500 Weight 69.85 kg Murray Rizvi FIELD ENUMERATOR-C [facility] Work Phone: Encounters Encounter Date Encounter Type Care Provider Facility Start: 12-11-2020 End: 12-11-[address] [facility] Procedures Date Procedure Procedure Detail Performing Clinician Start: 01-22-2017 End: 01-22-2017 Nurse, Teaching, Wound Check (no charge) Dylon Puentes MD Start: 01-11-2017 End: 01-11-2017 Documentation of current medications Murray Rizvi FIELD ENUMERATOR-C Start: 01-11-2017 End: 01-23-2017 *BMP Murray Verma Rizvi FIELD ENUMERATOR-C Start: 01-11-2017 End: 01-23-2017 aPTT Murray Rizvi FIELD ENUMERATOR-C Start: 01-11-2017 End: 01-23-2017 CBC W Auto Differential panel - Blood Murray Rizvi FIELD ENUMERATOR-C Start: 01-11-2017 End: 01-23-2017 Chest x-ray Murray Rizvi FIELD ENUMERATOR-C Start: 01-11-2017 End: 01-23-2017 Coagulation factor induced.INR assay in platelet poor plasma Murray Rizvi FIELD ENUMERATOR-C Start: 01-11-2017 End: 01-22-2017 Electrocardiogram, complete Murray Rizvi FIELD ENUMERATOR-C Start: 01-11-2017 End: 01-11-2017 Follow Up Appt Other Murray Rizvi FIELD ENUMERATOR-C Start: 10-22-2016 End: 10-22-2016 Dietary management education, guidance, and counseling Murray Rizvi FIELD ENUMERATOR-C Start: 10-22-2016 End: 12-25-2016 Echocardiography Dylon Puentes [...] Author Start: 01-11-2017 End: 01-11-2017 Appointment Appointment [facility] Work Phone: Start: 01-11-2017 End: 01-23-2017 *BMP *BMP [facility] Work Phone: Start: 01-11-2017 End: 01-23-2017 aPTT *PTT-Partial Thromboplastin Time [facility] Work Phone: Start: 01-11-2017 End: 01-23-2017 aPTT Coag (PPP) [Time] *PTT-Partial Thromboplastin Time [facility] Work Phone: Start: 01-11-2017 End: 01-23-2017 CBC W Auto Differential panel - Blood *CBC without Diff [facility] Work Phone: Start: 01-11-2017 End: 01-23-2017 Chest x-ray X-Ray, Chest, PA & Lateral [facility] Work Phone: Start: 01-11-2017 End: 01-23-2017 Coagulation factor induced.INR assay in platelet poor plasma *PT/INR [facility] Work Phone: Start: 01-11-2017 End: 01-22-2017 Electrocardiogram, complete EKG (In office) [facility] Work Phone: Start: 01-11-2017 End: 01-11-2017 Follow Up Appt Other Follow Up Appt Other [facility] Work Phone: Start: 01-11-2017 End: 01-21-2017 Left Heart Cath Left Heart Cath [facility] Work Phone: Start: 10-22-2016 End: 10-22-2016 Echocardiography Echocardiogram (complete) [facility] Work Phone: Start: 10-22-2016 End: 10-22-2016 Electrocardiogram, complete EKG (In office) [facility] Work Phone: Start: 10-22-2016 End: 10-22-2016 Follow Up Appt 2 months Follow Up Appt 2 months [facility] Work Phone: Start: 10-22-2016 End: 10-22-2016 MMM MMM [facility] Work Phone: Start: 10-22-2016 End: 10-22-2016 Nuclear stress test -exercise Nuclear stress test -exercise [facility] Work Phone: Start: 10-22-2016 End: 10-22-2016 Remote 30 day ecg rev/report 30 Day Holter Monitor [facility] Work Phone: Payers Date Payer Category Payer Unknown [id number] Unknown 115 2 Summary Purpose Family History No Family History Records FoundNo Family History Records Found Advance Directives No Advanced Directives Records FoundNo Advanced Directives Records Found Additional Source Comments INFORMATION SOURCE (unrecogn ized section and content) DATE CREATED AUTHOR AUTHOR'S ORGANIZ ATION 10/09/2021 [facility] FOR RECORDS PERTAINING TO PATIENTS WHO ARE [...] BE BASED ON THE PRIMARY CLINICAL RECORDS. [employer] provides no warranty or guarantee of the accuracy or completeness of information in this document.
== END | disposition home or self-care (01) ==
LOC: OPBI 09:03
PROVIDERS: PCP Family Medicine; Referring Provider Family Medicine; Visit Provider Family Medicine
DX: Z12.31 Encounter for screening mammogram for malignant neoplasm of breast (principal); Z80.3 Family history of malignant neoplasm of breast
CPT/HCPCS: 77063; 77067

== ENCOUNTER → 2023-12-28 | Outpatient (CLI) | payer SELFPAY, OTHER ==
--- NOTE | 2023-12-28 07:48 | ECHOD_ITS ---
Reason For Study: Palpitations Procedure This was a 2D Doppler, Color Flow transthoracic echocardiogram. Exam performed in department. Left Ventricle Normal size and thickness. The left ventricular ejection fraction is 65 %. Normal diastololic function. Right Ventricle Normal right ventricle. Atria The left and right atria are normal. Mitral Valve Mild (1+) mitral valve insufficiency. Tricuspid Valve Mild to moderate (1-2+) tricuspid valve insufficiency. Normal pulmonary artery pressure. Aortic Valve Trisinus/trileaflet aortic valve. Pulmonic Valve The pulmonic valve is not well visualized. Great Vessels Normal sized aortic root. Pericardium/Pleural No pericardial effusion. MMode/2D Measurements & Calculations LVIDd: 4.8 cm IVSd: 0.87 cm Ao root diam: 3.0 cm LVIDs: 3.3 cm LVPWd: 0.87 cm LA dimension: 3.4 cm RVDd: 3.1 cm FS: 30.1 % LAV(MOD-bp): 39.4 ml LVAd ap4: 23.0 cm2 SV(MOD-sp4): 39.8 ml LAV(MOD-bp) Indexed: 23.6 ml/m2 LVLd ap4: 6.6 cm LAV(MOD-sp2): 38.9 ml EDV(MOD-sp4): 64.6 ml LAV(MOD-sp4): 40.2 ml EDV(sp4-el): 68.1 ml LVAs ap4: 13.2 cm2 LVLs ap4: 5.7 cm ESV(MOD-sp4): 24.8 ml ESV(sp4-el): 25.7 ml EF(MOD-sp4): 61.6 % EF(sp4-el): 62.3 % SV(sp4-el): 42.5 ml LA A4 area: 15.6 cm2 RA A4 area: 12.9 cm2 TAPSE: 1.9 cm Time Measurements MV dec time: 0.16 sec Doppler Measurements & Calculations MV E max abisai: 73.9 cm/sec Lat Peak E' Abisai: 10.0 cm/sec Med Peak E' Abisai: 6.7 cm/sec MV A max abisai: 69.9 cm/sec E/E' lat: 7.4 E/E' med: 11.0 MV E/A: 1.1 MV V2 max: 86.7 cm/sec MV P1/2t max abisai: 88.3 cm/sec Ao V2 max: 128.2 cm/sec MV max P.0 mmHg MV P1/2t: 60.7 msec Ao max P.6 mmHg MV V2 mean: 48.9 cm/sec MV dec slope: 426.1 cm/sec2 Ao V2 mean: 87.1 cm/sec MV mean P.1 mmHg Ao mean P.5 mmHg MV V2 VTI: 26.0 cm MVA(P1/2t): 3.6 cm2 Ao V2 VTI: 29.8 cm AV (velocity ratio): 0.78 LV V1 max: 102.4 cm/sec MR max abisai: 484.4 cm/sec PA V2 max: 94.4 cm/sec LV V1 max P.2 mmHg MR max P.8 mmHg PA V2 mean: 60.8 cm/sec LV V1 mean P.3 mmHg LV V1 mean: 72.1 cm/sec LV V1 VTI: 23.3 cm TR max abisai: 251.8 cm/sec TR max P.4 mmHg ECHO/Echo Complete Interpretation Summary The left ventricular ejection fraction is 65 %. Mild (1+) mitral valve insufficiency. Mild to moderate (1-2+) tricuspid valve insufficiency. Ordering Physician: Marcy Workman Referring Physician: Marcy Workman Performed By: Cade Garcia RCS
== END | disposition home or self-care (01) ==
LOC: CVS 07:48
PROVIDERS: PCP Family Medicine; Referring Provider Internal Medicine Cardiovascular Disease; Visit Provider Internal Medicine Cardiovascular Disease
DX: R00.2 Palpitations (principal); I48.0 Paroxysmal atrial fibrillation
CPT/HCPCS: 93306

== ENCOUNTER → 2024-09-21 | Outpatient (CLI) | payer OTHER, SELFPAY ==
[2024-09-21 12:46] LABS: Absolute Lymphocyte Count 1.92 X10^3/uL (0.83-4.51); Absolute Neutrophil Count 3.6 X10^3/uL (2.0-7.7); Basophil# 0.04 X10^3/uL; Basophil% 0.6 % (0-1); Eosinophils% 3.2 % (0-5); Hematocrit 43.1 % (37-47); Hemoglobin 14.1 g/dL (12.0-15.0); Lymphocyte # 1.92 X10^3/ul (0.83-4.51); Lymphocyte % 30.6 % (19-41); Mean Corp Hgb Conc 32.7 g/dL (32-36); Mean Corpuscular Hgb 30.7 pg (27.0-32.0); Mean Corpuscular Volume 93.9 fL (81-99); Mean Platelet Vol. 10.3 fl (6.2-12.0); NRBC Flagged by Analyzer 0 % (0-5); Neutrophil % 57.3 % (47-70); Platelet Count 318 K/mm3 (150-450); RBC Distribution Width CV 13.4 % (11.6-14.6); RBC Distribution Width SD 46.1 fl (35.1-43.9); Red Blood Count 4.59 M/mm3 (4.2-5.4); White Blood Count 6.3 K/mm3 (4.4-11.0)
[2024-09-21 13:18] LABS: AST(SGOT) 30 U/L (15-37); Alanine Aminotransfer ALT/SGPT 50 U/L (13-56); Albumin, Serum 3.9 g/dL (3.2-5.0); Alkaline Phosphatase 56 U/L (45-117); Anion Gap 7 (5-15); BUN 15 mg/dL (7-18); BUN/Creat Ratio 21.1 RATIO (10-20); Calcium,Total 9.8 mg/dL (8.5-10.1); Chloride 107 mmol/L (98-107); Cholesterol 213 mg/dL (200); Creatinine, Serum 0.71 mg/dL (0.55-1.02); EST Glomerular Filtration Rate 88 mL/min (>60); Est Glom Filt Rate - Afr Amer 106 mL/min (>60); Globulin 3.9 g/dL (2.2-4.2); Glucose 125 mg/dL (74-106); High Density Lipoprotein 52 mg/dL; Potassium 4.3 mmol/L (3.5-5.1); Protein, Total 7.8 g/dL (6.4-8.2); Sodium Level 140 mmol/L (136-145); T4 Free Direct 1.38 ng/dL (0.76-1.46); Thyroid Stim Hormone (TSH) 0.302 uIU/mL (0.358-3.740); Triglycerides 191 mg/dL; Very Low Density Lipoprotein 38 mg/dL (5-40)
[2024-09-21 13:19] LABS: Hemoglobin A1c 6.2 % (3.8-5.6)
== END | disposition home or self-care (01) ==
LOC: BFHLAB 09:42
PROVIDERS: PCP Family Medicine; Visit Provider Family Medicine
DX: E03.9 Hypothyroidism, unspecified (principal); R73.03 Prediabetes; E78.5 Hyperlipidemia, unspecified
CPT/HCPCS: 36415; 80053; 80061; 83036; 84439; 84443; 85025

== ENCOUNTER → 2024-10-03 | Outpatient (CLI) | payer SELFPAY, OTHER ==
--- NOTE | 2024-10-03 11:59 | US_ITS ---
PROCEDURE: THYROID REASON FOR EXAM: Follow-up for thyroid nodules. TECHNIQUE: Thyroid ultrasound COMPARISON: Comparison is made with prior examination dated September 15, 2023. FINDINGS: Right thyroid lobe measures 4.8 cm x 1.5 cm x 1.3 cm. Left thyroid lobe measures 4.8 cm x 1.5 cm x 1.6 cm. Isthmus thickness is2 mm. Thyroid Size: Normal Background Echotexture: Normal Thyroid Nodules: There is an 8 mm x 9 mm x 9 mm isoechoic nodule in the left lobe of the thyroid. This is unchanged. Incidental note is made of a 2 cm x 0.7 cm x 0.5 cm right cervical benign- appearing lymph node. US/Thyroid IMPRESSION: 8 mm x 9 mm x 9 mm isoechoic nodule in the left lobe of the thyroid. Routine f ollow-up recommended. Reading Location: [place] [id number]
== END | disposition home or self-care (01) ==
LOC: US 11:59
PROVIDERS: PCP Family Medicine; Referring Provider Surgery; Visit Provider Surgery
DX: E04.1 Nontoxic single thyroid nodule (principal)
CPT/HCPCS: 76536

== ENCOUNTER → 2025-05-30 | Outpatient (CLI) | payer SELFPAY, OTHER ==
--- NOTE | 2025-05-30 15:43 | BI_ITS ---
EXAM: SCRN MAMM (CAD)W/JACIEL BILAT DATE: 05/30/2025 CLINICAL HISTORY: F, Age 65 y/o , SCREENING TECHNIQUE: Procedure Code: [id number] Modality: MG Procedure: SCRN MAMM (CAD)W/JACIEL BILAT COMPARISON: Prior exam(s) dated 10/13/2023, 10/07/2022, 11/26/2020. FINDINGS: TISSUE DENSITY: The breasts are heterogeneously dense, which may obscure small masses. The mammogram demonstrates that the patient has dense breasts. Supplemental screening with whole breast ultrasound or MRI may be considered for further evaluation. Bilateral Breast Mammographic Findings: No significant masses, calcifications or other abnormalities are identified. BI/SCRN MAMM (CAD)W/JACIEL BILAT IMPRESSION: There is no mammographic evidence of malignancy. OVERALL FINAL ASSESSMENT BI-RADS 1: NEGATIVE. RECOMMENDATION: Routine annual follow-up in 1 Year Additional Recommendation none A letter with findings and recommendations will be mailed to the patient. Reading Location: [id number]
== END | disposition home or self-care (01) ==
LOC: OPBI 15:42
PROVIDERS: PCP Family Medicine; Referring Provider Family Medicine; Visit Provider Family Medicine
DX: Z12.31 Encounter for screening mammogram for malignant neoplasm of breast (principal)
CPT/HCPCS: 77063; 77067